=== PATIENT | male | born 1970 | race American Indian/Alaskan Native ===

== ENCOUNTER 2018-10-04 23:11 | Emergency (ER) | payer SELFPAY ==
[2018-10-04 23:35] VITALS: BP 128/82
[2018-10-05 00:28] LABS: Bacteria,Urine 2+ /HPF (Negative); Bilirubin,Urine NEG (Negative); Blood,Urine LG (Negative); Color,Urine Yellow (Yellow); Mucus,Urine FEW /HPF; Protein,Urine <15 mg/dL mg/dL (Negative); Urobilinogen,Urine < 2.0 mg/dL (<2.0)
[2018-10-05 00:39] LABS: WBC,Urine > 182.0 /HPF (0.0-6.0)
--- NOTE | 2018-10-05 03:37 | Emergency Department Report ---
ED Male HPI - General Chief complaint: Urogenital-Male Stated complaint: PROSTRATE PROBLEM Time Seen by Provider: 10/05/18 02:30 Source: patient Mode of arrival: Ambulatory Limitations: No Limitations - History of Present Illness Initial comments: Patient is a 48-year-old -[place] male who presents for dysuria ,frequency urgency 2 days patient denies history of renal stones denies STI possibility, patient denies penile discharge is no rash no lesions no nausea /vomiting no fever or chills. symptom are ecaebated by voiding symptoms ar rel ieved by nothing tried pt denies hematuria hesitency or void problem. MD Complaint: penile discharge, dysuria (R lower), hernia, groin pain Onset/Timin -: hour(s), days(s) Location: abdomen Radiation: none Severity: moderate Severity scale (0 -10): 4 Quality: burning Consistency: intermittent Improves with: none Worsens with: urination discharge - Related Data Sexually active: Yes Previous Rx's Medication Instructions Recorded Last Taken Type cefTRIAXone [Rocephin] 1 gm IM ONCE #1 vial 10/05/18 Unknown Rx levoFLOXacin [Levaquin TAB] 500 mg PO QDAY 5 Days #500 tablet 10/05/18 Unknown Rx Allergies Allergy/AdvReac Type Severity Reaction Status Date / Time No Known Allergies Allergy Verified 10/04/18 23:14 ED Review of Systems ROS: Stated complaint: PROSTRATE PROBLEM Other details as noted in HPI Constitutional: no symptoms reported Eyes: denies: eye pain, eye discharge, vision change ENT: denies: ear pain, throat pain Respiratory: denies: cough, shortness of breath, wheezing Cardiovascular: denies: chest pain, palpitations Endocrine: no symptoms reported Gastrointestinal: as per HPI. denies: abdominal pain, nausea, vomiting, diarrhea, constipation Genitourinary: urgency, dysuria, frequency. denies: as per HPI, hematuria, discharge, testicular pain, testicular mass Musculoskeletal: as per HPI Skin: denies: rash, lesions Neurological: denies: headache, weakness, paresthesias Psychiatric: as per HPI Hematological/Lymphatic: denies: easy bleeding, easy bruising ED Past Medical Hx - Past Medical History Previous Medical History?: No - Surgical History Past Surgical History?: Yes Hx Appendectomy: Yes - Social History Smoking Status: Current Every Day Smoker Substance Use Type: Marijuana - Medications Home Medications: Home Medications Medication Instructions Recorded Confirmed Last Taken Type cefTRIAXone [Rocephin] 1 gm IM ONCE #1 vial 10/05/18 Unknown Rx levoFLOXacin [Levaquin TAB] 500 mg PO QDAY 5 Days #500 tablet 10/05/18 Unknown Rx ED Physical Exam - General Limitations: No Limitations General appearance: alert, in no apparent distress - Head Head exam: Present: atraumatic (her), normocephalic - Eye Eye exam: Present: normal appearance, PERRL, EOMI - ENT ENT exam: Present: mucous membranes moist - Neck Neck exam: Present: normal inspection, full ROM, lymphadenopathy, thyromegaly - Respiratory Respiratory exam: Present: normal lung sounds bilaterally, chest wall tenderness. Absent: respiratory distress, wheezes, stridor - Cardiovascular Cardiovascular Exam: Present: regular rate, normal rhythm, normal heart sounds. Absent: systolic murmur, diastolic murmur, rubs, gallop - GI/Abdominal GI/Abdominal exam: Present: soft, normal bowel sounds. Absent: distended, tenderness, guarding, rebound, rigid, pulsatile mass - Rectal Rectal exam: Present: deferred - exam: Present: normal inspection, urethral discharge - Extremities Exam Extremities exam: Present: normal inspection, full ROM, normal capillary refill. Absent: tenderness, pedal edema, joint swelling, calf tenderness - Back Exam Back exam: Present: normal inspection, full ROM, rash noted. Absent: tenderness, CVA tenderness (R), CVA tenderness (L), muscle spasm, paraspinal tenderness, vertebral tenderness - Neurological Exam Neurological exam: Present: alert, oriented X3, CN II-XII intact, normal gait, reflexes normal - Psychiatric Psychiatric exam: Present: normal affect, normal mood - Skin Skin exam: Present: warm, dry, intact, normal color. Absent: rash ED Course Vital Signs 10/04/18 23:33 Temperature 98.9 F Pulse Rate 96 H Respiratory 18 Rate Blood Pressure 128/82 O2 Sat by Pulse 99 Oximetry ED Medical Decision Making - Lab Data Labs 10/04/18 10/05/18 23:36 00:02 POC Glucose 89 Urine Color Yellow Urine Turbidity Slightly-cloudy Urine pH 6.0 Ur Specific [place] 1.008 Urine Protein <15 mg/dl Urine Glucose (UA) Neg Urine Ketones Neg Urine Blood Lg Urine Nitrite Neg Urine Bilirubin Neg Urine Urobilinogen < 2.0 Ur Leukocyte Esterase Lg Urine WBC (Auto) > 182.0 H Urine RBC (Auto) 20.0 U Epithel Cells (Auto) 1.0 Urine Bacteria (Auto) 2+ Urine WBC Clumps 2+ Urine Mucus Few - Medical Decision Making UA positive for leukocytes white blood cells some RBCs patient denies nausea vomiting denies S GI denies penile discharge plan 1 g Rocephin IM DC to home with Levaquin by mouth patient will follow up with PCP in 2-3 days patient will return immediately should symptoms worsen .There is no achy nausea or vomiting Critical care attestation.: If time is entered above; I have spent that time in minutes in the direct care of this critically ill patient, excluding procedure time. ED Disposition Clinical Impression: UTI (urinary tract infection) Qualifiers: Urinary tract infection type: acute cystitis Hematuria presence: without h ematuria Qualified Code(s): N30.00 - Acute cystitis without hematuria Disposition: DC-01 TO HOME OR SELFCARE Is pt being admited?: No Does the pt Need Aspirin: No Condition: Stable Instructions: Urinary Tract Infection in Men (ED) Prescriptions: levoFLOXacin [Levaquin TAB] 500 mg PO QDAY 5 Days #500 tablet cefTRIAXone [Rocephin] 1 gm IM ONCE #1 vial Referrals: JOHN PAUL TOLENTINO MD [Primary Care Provider] - 3-5 Days Forms: Work/School Release Form(ED) Time of Disposition: 03:49
[2018-10-05] MEDS ORDERED: ROCEPHIN IM ONE ×2 (03:55→04:00)
[2018-10-05] MEDS ORDERED: XYLOCAINE 1% MPF 5 mL ONE (03:56)
[2018-10-05] MEDS ORDERED: XYLOCAINE 1% MPF 5 mL INFILTRATI ONE (04:03)
== END 2018-10-05 04:29 | disposition home or self-care (01) ==
LOC: ED 23:11
DX: N30.00 Acute cystitis without hematuria (principal); F17.200 Nicotine dependence, unspecified, uncomplicated; F12.10 Cannabis abuse, uncomplicated; Z90.49 Acquired absence of other specified parts of digestive tract
CPT/HCPCS: 81001; 82962; 96372; 99283; J0696

== ENCOUNTER 2019-03-10 12:57 | Emergency (ER) | payer SELFPAY ==
[2019-03-10 13:13] VITALS: BP 134/97
[2019-03-10] MEDS ORDERED: KETOROLAC 60 MG/2 ML INJ IM ONE (14:43)
[2019-03-10 14:47] LABS: Basophils # (Auto) 0.1 K/mm3 (0.0-0.1); Basophils % (Auto) 1.5 % (0.0-1.8); Eosinophils # (Auto) 0.1 K/mm3 (0.0-0.4); Eosinophils % (Auto) 2.5 % (0.0-4.3); Hematocrit 44.9 % (35.5-45.6); Hemoglobin 15.1 gm/dl (11.8-15.2); Lymphocytes # (Auto) 2.4 K/mm3 (1.2-5.4); Lymphocytes % (Auto) 42.9 % (13.4-35.0); Mean Corpuscular HGB Conc 34 % (32-34); Mean Corpuscular Volume 100 fl (84-94); Monocytes # (Auto) 0.5 K/mm3 (0.0-0.8); Monocytes % (Auto) 8.2 % (0.0-7.3); Platelet Count 170 K/mm3 (140-440); Red Cell Distribution Width 13.7 % (13.2-15.2)
[2019-03-10 15:22] LABS: Bacteria,Urine 1+ /HPF (Negative); Bilirubin,Urine NEG (Negative); Blood,Urine NEG (Negative); Color,Urine Yellow (Yellow); Mucus,Urine 2+ /HPF; Protein,Urine <15 mg/dL mg/dL (Negative); Urobilinogen,Urine < 2.0 mg/dL (<2.0)
[2019-03-10 15:34] LABS: Alanine Aminotransferase 14 units/L (7-56); Albumin 4.9 g/dL (3.9-5); BUN/Creatinine Ratio 16; Blood Urea Nitrogen 11 mg/dL (9-20); Calcium 9.4 mg/dL (8.4-10.2); Hemolysis Index 6
[2019-03-10] MEDS ORDERED: SULFAMETHOXAZOLE/TRIMETHOPRIM 800/160MG DS TAB PO ONE (15:45)
--- NOTE | 2019-03-10 15:45 | Emergency Department Report ---
ED Male HPI - General Chief complaint: Abdominal Pain Stated complaint: UTI SYMPTOMS Time Seen by Provider: 03/10/19 14:29 Source: patient Mode of arrival: Ambulatory Limitations: No Limitations - History of Present Illness Initial comments: 48-year-old male with no significant past medical history presents to the past medical history the Hospital with complains of pain to his right lower abdomen 1 week. Pain is aching,, intermittent, with radiation to the right flank and right inguinal area. Aching pain with urination reported without dysuria. Patient complains of increased urinary frequency was small urine output volume with each urination episode. Pain is rated 8/10 in intensity. Patient denies penile discharge, fever, nausea or vomiting. As per medical record review patient was seen here September 2018 and treated for UTI. - Related Data Previous Rx's Medication Instructions Recorded Last Taken Type cefTRIAXone [Rocephin] 1 gm IM ONCE #1 vial 10/05/18 Unknown Rx levoFLOXacin [Levaquin TAB] 500 mg PO QDAY 5 Days #500 tablet 10/05/18 Unknown Rx Ibuprofen [Motrin] 800 mg PO Q8HR PRN #30 tablet 03/10/19 Unknown Rx Sulfamethoxazole/Trimethoprim 1 each PO BID #10 tablet 03/10/19 Unknown Rx [Bactrim DS TAB] Tamsulosin [Flomax] 0.4 mg PO QDAY #30 cap 03/10/19 Unknown Rx Allergies Allergy/AdvReac Type Severity Reaction Status Date / Time No Known Allergies Allergy Verified 10/04/18 23:14 ED Review of Systems ROS: Stated complaint: UTI SYMPTOMS Other details as noted in HPI Comment: All other systems reviewed and negative ED Past Medical Hx - Past Medical History Previous Medical History?: No - Surgical History Past Surgical History?: No Hx Appendectomy: Yes - Social History Smoking Status: Current Every Day Smoker Substance Use Type: None - Medications Home Medications: Home Medications Medication Instructions Recorded Confirmed Last Taken Type cefTRIAXone [Rocephin] 1 gm IM ONCE #1 vial 10/05/18 Unknown Rx levoFLOXacin [Levaquin TAB] 500 mg PO QDAY 5 Days #500 tablet 10/05/18 Unknown Rx Ibuprofen [Motrin] 800 mg PO Q8HR PRN #30 tablet 03/10/19 Unknown Rx Sulfamethoxazole/Trimethoprim 1 each PO BID #10 tablet 03/10/19 Unknown Rx [Bactrim DS TAB] Tamsulosin [Flomax] 0.4 mg PO QDAY #30 cap 03/10/19 Unknown Rx ED Physical Exam - General Limitations: No Limitations - Other Other exam information: Gen.: No acute distress Head: Atraumatic Eyes: Normal appearance ENT: Moist mucous membranes Neck: Normal appearance, no posterior midline tenderness, no meningismus Chest: Clear to auscultation bilaterally Cardiovascular: Regular rate and rhythm Abdomen: Normal appearance, soft, nontender, no rebound or guarding, normal bowel sounds : No penile discharge, no penile lesions, no palpable inguinal adenopathy, no inguinal hernia. No scrotal swelling, no testicular or epididymal pain on palpation Back: Normal appearance, right CVA tenderness Extremity: Full range of motion, normal appearance Neuro: Alert, clear speech, no focal motor or sensory deficit Psychiatric: Appropriate Skin: No rash ED Course Vital Signs 03/10/19 03/10/19 13:10 13:13 Temperature 98.4 F 98.4 F Pulse Rate 84 84 Respiratory 17 18 Rate Blood Pressure 134/97 Blood Pressure 134/97 [Right] O2 Sat by Pulse 98 98 Oximetry ED Medical Decision Making - Lab Data Result diagrams: 03/10/19 14:35 03/10/19 14:35 Lab Results 03/10/19 03/10/19 03/10/19 Range/Units 14:30 14:35 14:35 WBC 5.7 (4.5-11.0) K/mm3 RBC 4.50 (3.65-5.03) M/mm3 Hgb 15.1 (11.8-15.2) gm/dl Hct 44.9 (35.5-45.6) % MCV 100 H (84-94) fl MCH 34 H (28-32) pg MCHC 34 (32-34) % RDW 13.7 (13.2-15.2) % Plt Count 170 (140-440) K/mm3 Lymph % (Auto) 42.9 H (13.4-35.0) % [place] % (Auto) 8.2 H (0.0-7.3) % Eos % (Auto) 2.5 (0.0-4.3) % Baso % (Auto) 1.5 (0.0-1.8) % Lymph # 2.4 (1.2-5.4) K/mm3 Starr # 0.5 (0.0-0.8) K/mm3 Eos # 0.1 (0.0-0.4) K/mm3 Baso # 0.1 (0.0-0.1) K/mm3 Seg Neutrophils % 44.9 (40.0-70.0) % Seg Neutrophils # 2.5 (1.8-7.7) K/mm3 Sodium 139 (137-145) mmol/L Potassium 4.0 (3.6-5.0) mmol/L Chloride 100.5 (98-107) mmol/L Carbon Dioxide 23 (22-30) mmol/L Anion Gap 20 mmol/L BUN 11 (9-20) mg/dL Creatinine 0.7 L (0.8-1.5) mg/dL Estimated GFR > 60 ml/min BUN/Creatinine Ratio 16 % Glucose 76 (75-100) mg/dL Calcium 9.4 (8.4-10.2) mg/dL Total Bilirubin 0.40 (0.1-1.2) mg/dL AST 16 (5-40) units/L ALT 14 (7-56) units/L Alkaline Phosphatase 63 (35-129) units/L Total Protein 7.6 (6.3-8.2) g/dL Albumin 4.9 (3.9-5) g/dL Albumin/Globulin Ratio 1.8 % Urine Color Yellow (Yellow) Urine Turbidity Clear (Clear) Urine pH 5.0 (5.0-7.0) Ur Specific [place] 1.032 H (1.003-1.030) Urine Protein <15 mg/dl (Negative) mg/dL Urine Glucose (UA) Neg (Negative) mg/dL Urine Ketones Neg (Negative) mg/dL Urine Blood Neg (Negative) Urine Nitrite Neg (Negative) Urine Bilirubin Neg (Negative) Urine Urobilinogen < 2.0 (<2.0) mg/dL Ur Leukocyte Esterase Tr (Negative) Urine WBC (Auto) 3.0 (0.0-6.0) /HPF Urine RBC (Auto) 2.0 (0.0-6.0) /HPF U Epithel Cells (Auto) < 1.0 (0-13.0) /HPF Urine Bacteria (Auto) 1+ (Negative) /HPF Urine Mucus 2+ /HPF - Medical Decision Making 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 The patient treated empirically with Bactrim 5 days in addition to Flomax and Motrin. Outpatient follow-up with PMD and urologist occur based for further workup for suspected enlarged prostate. Patient treated with Toradol and Bactrim in the ED - Differential Diagnosis UTI, BPH, prostate cancer, urethritis Critical Care Time: No Critical care attestation.: If time is entered above; I have spent that time in minutes in the direct care of this critically ill patient, excluding procedure time. ED Disposition Clinical Impression: Urinary frequency Disposition: TO HOME OR SELFCARE Is pt being admited?: No Does the pt Need Aspirin: No Condition: Stable Instructions: Benign Prostatic Hypertrophy (ED), Urinary Tract Infection in Men (ED) Additional Instructions: Take the medication as prescribed. Follow-up with your doctor or with the doctor/clinic provided. Return if symptoms worsen as indicated by your discharge instructions. You are suspected to have a large prostate based on your urinary symptoms. You will require further workup and evaluation by a urologist In the meantime you will be treated with an antibiotic and Flomax. Prescriptions: Sulfamethoxazole/Trimethoprim [Bactrim DS TAB] 1 each PO BID #10 tablet Tamsulosin [Flomax] 0.4 mg PO QDAY #30 cap Ibuprofen [Motrin] 800 mg PO Q8HR PRN #30 tablet PRN Reason: Pain , Severe (7-10) Referrals: [facility] [Provider Group] - 3-5 Days RENETTA NORTON MD [Staff Physician] - 3-5 Days (urologist) Time of Disposition: 15:53
== END 2019-03-10 16:00 | disposition home or self-care (01) ==
LOC: ED 12:57
DX: R35.0 Frequency of micturition (principal); R10.9 Unspecified abdominal pain; F17.200 Nicotine dependence, unspecified, uncomplicated; Z90.89 Acquired absence of other organs
CPT/HCPCS: 36415; 80053; 81001; 85025; 96372; 99283; J1885